=== PATIENT | male | born 1990 | race Caucasian/White ===

== ENCOUNTER 2016-07-23 17:30 | Emergency (ER) | payer MEDICAID ==
[~2016-07-23] VITALS: Ht 175.3 cm; Wt 65.8 kg
--- NOTE | 2016-07-23 17:59 | NUR ---
Patient discharged to home in stable conditon. Written and verbal after care instructions given. Patient verbalizes understanding of instructions. Stressed follow up with pmd.
== END 2016-07-23 18:00 | disposition home or self-care (01) ==
LOC: ER 17:30
DX: J18.9 Pneumonia, unspecified organism (principal); I10 Essential (primary) hypertension; Z88.1 Allergy status to other antibiotic agents; Z88.8 Allergy status to other drugs, medicaments and biological substances
CPT/HCPCS: 99283; A4663

== ENCOUNTER 2016-07-31 12:57 | Emergency (ER) | payer MEDICAID, OTHER ==
[~2016-07-31] VITALS: Ht 175.3 cm; Wt 63.5 kg
[2016-07-31] MEDS: IPRATROPIUM BROMIDE 0.5 MG/2.5 ML NEBU NEB ONE (13:17)
[2016-07-31] MEDS: ALBUTEROL SULFATE 2.5 MG/3 ML NEBU NEB ONE (13:17)
[2016-07-31] MEDS ORDERED: IPRATROPIUM BROMIDE 0.5 MG/2.5 ML NEBU ONE (13:32)
[2016-07-31] MEDS ORDERED: ALBUTEROL SULFATE 2.5 MG/3 ML NEBU ONE (13:32)
--- NOTE | 2016-07-31 13:45 | NUR ---
MSE COMPLETED. PT REC'D RESP TX. PT THEN D/C'D HOME, ACI/RX X1 GIVEN . PT AMBULATED W/O DIFF/TOOK ALL BELONGINGS.
[2016-07-31 13:47] VITALS: BP 142/88
== END 2016-07-31 13:47 | disposition home or self-care (01) ==
LOC: ER 12:57
DX: J18.9 Pneumonia, unspecified organism (principal); I10 Essential (primary) hypertension; Z88.1 Allergy status to other antibiotic agents; Z88.8 Allergy status to other drugs, medicaments and biological substances
CPT/HCPCS: A4663; J3590